=== PATIENT | female | born 1995 | race Caucasian/White ===

== ENCOUNTER 2020-03-25 22:44 | Inpatient (IN) | payer OTHER ==
[~2020-03-25] VITALS: Ht 157.5 cm; Wt 54.9 kg
[2020-03-31] MEDS ORDERED: NAPROXEN500 MG PO (09:01)
== END 2020-03-31 12:19 | disposition home or self-care (01) | DRG 807 ==
LOC: OB/GYN 22:44 → LDR 22:44 → OB/GYN 03-29 03:29
PROVIDERS: ADMIT Obstetrics & Gynecology; ATTEND Obstetrics & Gynecology
PROC: 4A1HXCZ Monitoring of Products of Conception, Cardiac Rate, External Approach (ICD-10-PCS; 2020-03-25)
PROC: BY4FZZZ Ultrasonography of Third Trimester, Single Fetus (ICD-10-PCS; 2020-03-26)
PROC: 10E0XZZ Delivery of Products of Conception, External Approach (ICD-10-PCS; principal; 2020-03-29)
PROC: 0W8NXZZ Division of Female Perineum, External Approach (ICD-10-PCS; 2020-03-29)
DX: O42.913 Preterm premature rupture of membranes, unspecified as to length of time between rupture and onset of labor, third trimester (principal); Z37.0 Single live birth; Z3A.29 29 weeks gestation of pregnancy

== ENCOUNTER 2022-10-21 00:22 | Inpatient (IN) | payer OTHER ==
[~2022-10-21] VITALS: Ht 157.5 cm; Wt 58.1 kg
[~2022-10-21 00:22] MED LIST: NAPROXEN500 MG PO
[2022-10-21] MEDS ORDERED: ZOFRAN8 MG PO (07:22)
[2022-10-21] MEDS ORDERED: PRENATAL TABLE1 EAC1 PO (07:23)
[2022-10-21] MEDS ORDERED: IRON325 MG PO (07:23)
== END 2022-10-28 13:38 | disposition home or self-care (01) | DRG 833 ==
LOC: OBS/DEL 00:22 → OB/GYN 01:18 → LDR 01:18 → OB/GYN 10-23 12:44
PROVIDERS: ADMIT Specialist; ATTEND Specialist
PROC: 4A1HXCZ Monitoring of Products of Conception, Cardiac Rate, External Approach (ICD-10-PCS; principal; 2022-10-21)
PROC: BY4FZZZ Ultrasonography of Third Trimester, Single Fetus (ICD-10-PCS; 2022-10-23)
DX: O47.03 False labor before 37 completed weeks of gestation, third trimester (principal); O26.843 Uterine size-date discrepancy, third trimester; O36.8130 Decreased fetal movements, third trimester, not applicable or unspecified; Z3A.33 33 weeks gestation of pregnancy; Z20.822 Contact with and (suspected) exposure to COVID-19

== ENCOUNTER 2022-11-15 21:46 | Inpatient (IN) | payer OTHER ==
[~2022-11-15] VITALS: Ht 160 cm; Wt 59.0 kg
[~2022-11-15 21:46] MED LIST changes: +IRON325 MG PO; +PRENATAL TABLE1 EAC1 PO; +ZOFRAN8 MG PO
[2022-11-15] MEDS ORDERED: NIFEDIPINE20 MG PO (22:11)
== END 2022-11-18 11:18 | disposition home or self-care (01) | DRG 807 ==
LOC: OB/GYN 21:46 → LDR 21:46 → OB/GYN 11-16 09:57
PROVIDERS: ADMIT Specialist; ATTEND Specialist
PROC: 10E0XZZ Delivery of Products of Conception, External Approach (ICD-10-PCS; principal; 2022-11-16)
PROC: 4A1HXCZ Monitoring of Products of Conception, Cardiac Rate, External Approach (ICD-10-PCS; 2022-11-16)
DX: O60.14X0 Preterm labor third trimester with preterm delivery third trimester, not applicable or unspecified (principal); Z37.0 Single live birth; Z3A.36 36 weeks gestation of pregnancy; Z20.822 Contact with and (suspected) exposure to COVID-19